=== PATIENT | female | born 1950 | race Caucasian/White ===

== ENCOUNTER 2016-09-30 08:38 | Day surgery (SDC) | payer OTHER ==
--- NOTE | 2016-09-29 09:39 | HP ---
DATE OF CLINIC: 09/24/2016 BALWINDER ARREDONDO : 1950 PLANNED PROCEDURE: Right Carpal Tunnel Release DATE OF SURGERY: September 30, 2016 SURGEON: Viktor Merritt M.D. HISTORY OF PRESENT ILLNESS Balwinder Arredondo is a 65 year old female. * Medication list reviewed with patient allergy list reviewed with patient. * Tried NSAIDS Advil PRN * Has not tried Physical Therapy * Has not tried Injections This is a 65-year-old female who presents with complaints of bilateral carpal tunnel symptoms, primarily numbness and tingling in her right greater than left hand that goes back several months. At this point although she had similar symptoms back in the she states that this pain and numbness has been increasing with time. It was temporarily relieved with a trial of night splints, but not definitively relieved. Modification of her activities has not fully relieved her pain and she has not been able thus far to find any medications not make a significant difference. She has tried anti-inflammatories without adequate relief. She complains primarily of pain and numbness and tingling at the wrist. She rates the pain is bad as a 2/10. It seems to be worse with activities, particularly typing. She has undergone an ERICA as she initially filed for this to be covered under [employer], that was denied and so she is moving forward with this as a primary insurance claim. She presents today preoperatively. PAST MEDICAL AND SURGICAL HISTORY: Past medical and surgical history are as document. The patient states that she is undergoing menopause and it appears that the onset of her menopause symptoms coincides with the increase in her wrist symptoms. CURRENT MEDICATION * Losartan Potassium-HCTZ 100-25 MG Tablet 1 once a day, 90 days, 3 refills * Losartan Potassium-HCTZ 100-25 MG Tablet 1 once a day, 30 days, 0 refills * Stelara 45 MG/0.5ML SOSY, as directed 0 days, 0 refills * SudoGest 30 MG Tablet as directed 1-2 tabs every 6 hrs as needed [facility], 30 days, 3 refills * TraMADol HCl 50 MG Tablet 1-2 tabs every 6 to 8 hours prn pain Called to [facility] Emmanuel Kan MA 09/24/16, 0 days, 0 refills * Vagifem 10 MCG TABS, as directed 1 tab vaginally twice a week, 84 days, 3 refills PAST MEDICAL/SURGICAL HISTORY Reported: No recent change in medical history. Medical: Reported numbness and Reported tingling. 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 Surgical: * Tonsillectomy * Tubal ligation SOCIAL HISTORY Social history and to Gavin since 2003 son Enrique (29) works in [employer] for [employer] has [employer] and is member of [employer], used to golf and thinking of restarting. Behavioral: Caffeine use a couple cups of coffee a day and non-smoker quit smoking quit 35 yrs ago, 1/2 for 2 years. Smoking status: Former smoker. Alcohol: Alcohol use 1-2 drinks/night and a social drinker Occasional. Home Environment: Lives with spouse. Work: Occupation RN Infectious Control. ALLERGIES * No Known Allergies FAMILY HISTORY Family history unchanged Family medical history Mother: Heart Disease Father: Heart Disease, Diabetes, HBP REVIEW OF SYSTEMS No recent constitutional symptoms to include fevers and chills. No recent cardiovascular symptoms to include chest pain or palpitations. No recent respiratory symptoms to include shortness of breath or recent infections. PHYSICAL FINDINGS * Vitals taken 09/24/2016 01:57 pm BP-Sitting R 127/77 mmHg BP Cuff Size Regular Pulse Rate-Sitting 76 bpm Pulse Rhythm Regular Temp-Oral 97 F Height 62.25 in Weight 173 lbs Body Mass Index 31.4 kg/m2 Body Surface Area 1.80 m2 Pain Level 2 Ears, Nose, Throat: * ENT: normal. Lungs: * Clear to auscultation. Cardiovascular: Heart Rate and Rhythm: * Normal. Abdomen: * Normal. Neurological: Motor: * Dominant Hand = Right Hand. Patient is a well-developed, well-nourished female in no acute distress. They are awake and alert throughout the encounter. CARDIOVASCULAR: Intact peripheral pulses on bilateral upper extremities. No significant edema on inspection of bilateral upper extremities. NEUROLOGIC: Patient had intact coordinated composite motion of the bilateral upper extremities and sensation intact to light touch in all distributions of bilateral upper extremities. PSYCHIATRIC: Patient was oriented to person, place and time and displayed appropriate mood and affect during the encounter. SKIN: Exam of the skin on bilateral upper extremities showed no significant scars, lesions, rashes or masses. FOCUSED MUSCULOSKELETAL EXAM: The patient has normal resting station of the shoulders, elbows and wrists. Her right wrist shows no scars, no erythema, no ecchymosis. No significant swelling. She has a mildly positive Tinel's at the wrist. She has a positive Phalen's, and positive flexion and compression test. She has no significant weakness in her median nerve distribution. She does have some numbness and tingling, especially at the tips of her digits in the radial 3.5 digits. The hand is warm and well perfused with very mildly ulnar dominant blood flow on an Theo test. She is stable to Ge's exam and she has 5/5 strength throughout the hand. She has a negative Tinel's at the elbow and no evidence of ulnar nerve symptoms. IMAGING: A review of her x-rays shows no significant fractures or dislocations. She has some mild degenerative changes in the radial, carpal and scaphotrapeziotrapezoidal joint as well as some mild CMC arthrosis at the base of her thumb. Nerve conduction studies document moderate to severe carpal tunnel symptoms on the right side with no significant change on the left side. ASSESSMENT A 65-year-old right-hand dominant female with symptomatic and neurodiagnostic confirmed carpal tunnel on the right side as well. His symptoms consistent with carpal tunnel on the left side but it with equivocal neurodynamic studies. PREVIOUS TESTS * Test: CBC WITH DIFF Report Date: 09/01/2016 WBC 6.6 10*3/mL MCV 84.1 fL RBC 5.02 10*6/uL NEUTROPHILS 66.2 % MCH 28.7 pg MCHC 34.1 g/dL RDW 13.2 % PLATELET COUNT 203 10*3/mL IMM NEUT % 0.8 % IMM NEUT # 0.1 10*3/mL MONOCYTES 8.2 % BASOPHIL 0.5 % EOSINOPHIL 1.2 % HCT 42.2 % HGB 14.4 g/L LYMPHOCYTE 23.1 % ANC 4.4 10*3/mL * Test: THYROID STIMULATING HORMONE Report Date: 09/01/2016 TSH 2.46 u[iU]/mL * Test: COMPREHENSIVE METABOLIC PANEL Report Date: 09/01/2016 ALT/SGPT 8 U/L ALBUMIN 4.6 g/dL ALB/GLOB RATIO 2.4 BUN 16 mg/dL BUN/CREAT RATIO 23 High CALCIUM 9.5 mg/dL GLUCOSE 91 mg/dL CREATININE 0.7 mg/dL SODIUM 139 meq/L POTASSIUM 4.4 meq/L CHLORIDE 102 meq/L CARBON DIOXIDE 30 meq/L ANION GAP 11 meq/L TOT PROTEIN 6.5 g/dL GLOBULIN 1.9 g/dL Low BILI,TOTAL 0.8 mg/dL AST/SGOT 17 U/L ALK PHOSPHATASE 64 U/L GFR 85 * Test: LIPID PROFILE Report Date: 09/01/2016 HDL CHOLESTEROL 84 mg/dL VLDL CHOL 14 mg/dL CHOLESTEROL 217 mg/dL High TRIGLYCERIDES 72 mg/dL LDL CHOLESTEROL 119 mg/dL RISK RATIO 2.6 Low THERAPY * Patient not eligible for fall risk assessment. PLAN * Carpal tunnel syndrome, right upper limb Percocet 5-325 MG TABS, 1or 2 tablets every 4 to 6 hours as needed, 5 days, 0 refills * Decompression of median nerve at carpal tunnel -right CARE TEAM Iza Mitchell MD [facility] SURGICAL CONSENT We have discussed surgical options including right CTR and non-operative management. The patient was counseled in detail regarding the diagnosis, treatment options available, prognosis of each treatment option and the potential risks and complications. The risks of surgery include, but are not limited to, anesthetic , neurovascular complications, pulmonary embolism, deep vein thrombosis, wound dehiscence, failure of any or all of the discussed procedures, infection of the joint or surrounding soft tissue, need for revision surgery, chronic pain, limitations in activities of daily living, inability to return to work, and loss of normal range of motion or functional use of the extremity. There is the possibility of failure over time that may require additional operative or non-operative treatment. The patient acknowledged that there are a number of perioperative risks not mentioned here and would still like to proceed. The patient is aware of and understands these risks, and wishes to proceed with the proposed surgical procedure and other procedures as indicated at the time of surgery. We will have the patient see their PCP for a preoperative medical risk assessment. The preoperative instructions were reviewed with the patient and all questions were answered. PB/sg
[~2016-09-30 08:38] MED LIST: DEXAMETHASONE SOD PHOS 4 MG/1 ML VIAL ONE; LIDOCAINE 1% (PRES FREE) 30 ML VIAL ONE; METOCLOPRAMIDE HCL 5 MG/ML 2ML VIAL ONE; MIDAZOLAM HCL 1 MG/ML 2ML VIAL ONE; PROPOFOL 40 ML IV ONE
[2016-09-30] MEDS ORDERED: LACTATED RINGERS 1,000 ML ONE (08:44)
[2016-09-30] MEDS ORDERED: IV START KIT ONE ×2 (08:44→09:23)
[2016-09-30] MEDS ORDERED: CEFAZOLIN SODIUM 2 GRAM PREMIX 100 ML IV ONE (08:44)
[2016-09-30] MEDS ORDERED: CEFAZOLIN SODIUM 2 GRAM DUPLEX 50 ML IV PRN (08:45)
[2016-09-30] MEDS ORDERED: SODIUM CHLORIDE 0.9% FLUSH 10 ML ONE (09:23)
[2016-09-30] MEDS ORDERED: BUPIVACAINE 0.5% W/EPI SDV 30 ML VIAL ONE (10:10)
--- NOTE | 2016-09-30 10:17 | PCMBPN ---
Brief Post Op Note: Date of Procedure: 09/30/16 Start Time: 1000 Preoperative Diagnosis: 1. right carpal tunnel syndrome Postoperative Diagnosis: 1. Same Procedure: right open carpal tunnel release Surgeon: Viktor Merritt MD Assist: Josephine Briseno Anesthesia: Robin De Guzman Findings: as above Condition: stable to SDS Complications: none IV Fluids: 700 mLs of LR Urine Output: 0 mLs Estimated Blood Loss: 1 mLs Tourniquet Time: 25 min (Liana block) Specimens: none Implants: none Drains: none Viktor Merritt MD
[2016-09-30] MEDS ORDERED: ONDANSETRON 4 MG/2ML 2 ML VIAL IV PRN (10:35)
[2016-09-30] MEDS ORDERED: LACTATED RINGERS 1,000 ML IV SCH (10:35)
[2016-09-30] MEDS ORDERED: KETOROLAC TROMETHAMINE 30 MG/ML 1 ML VIAL IV PRN (10:35)
[2016-09-30] MEDS ORDERED: DIPHENHYDRAMINE HCL 50 MG/1 ML VIAL IV PRN (10:35)
[2016-09-30] MEDS ORDERED: OXYCODONE/ACETAMINOPHEN 5/325 MG TABLET PO PRN (10:35)
[2016-09-30] MEDS ORDERED: HYDROMORPHONE HCL 1 MG/ML SYRINGE IV PRN (10:35)
--- NOTE | 2016-10-01 10:02 | OP ---
Zaynab Arredondo : 1950 [id number] DATE OF SERVICE: 09/30/2016 PREOPERATIVE DIAGNOSIS: Right carpal tunnel syndrome. POSTOPERATIVE DIAGNOSIS: Right carpal tunnel syndrome. PROCEDURE PERFORMED: Right open carpal tunnel release. SURGEON: Viktor Merritt M.D. FLOOR GRINDER: Josephine Briseno. ANESTHESIA: Robin Granda. SPECIMENS: No material was sent to the laboratory. ESTIMATED BLOOD LOSS: 1 mL. FLUID REPLACED: 700 mL of crystalloid. TOURNIQUET TIME: 25 minutes for a soo block. IMPLANTS: None. DRAINS: None. INDICATIONS: This is a 66-year-old right hand dominant female with longstanding right carpal tunnel symptoms. Her physical exam and her diagnostic studies support this diagnosis. Risks, benefits, alternatives of open carpal tunnel release were discussed with the patient and she elected to proceed with surgery. Informed consent was obtained and documented on the chart. DESCRIPTION OF PROCEDURE: The patient was identified in the preoperative holding and marked with an indelible marker by the operating surgeon. She was taken to the operating room where she was placed in a supine position on the operating room table. She received perioperative antibiotics. A final operative timeout was performed confirmed by all members of the operative team. A well padded precalibrated non-sterile tourniquet was placed on her right upper arm. Her arm was elevated and exsanguinated using an esmarch bandage and the tourniquet was inflated to 250 mmHg. [place] block anesthesia was administered and then the IV from her right hand was removed. She was prepped and draped in the usual sterile fashion for surgery. Operative incision was made 3 cm in length over the volar surface of the patient's right hand approximately 6 mm ulnar to the thenar flexion crease. Dissection was carried down into the transverse fibers of transverse carpal ligament, these were sharply divided at their proximal extent and the freer elevated was passed into the carpal tunnel to protect the median nerve. The remainder of the transverse carpal ligament was sharply divided. Dissection was carried distally until we identified the fat surrounding the vascular arches. The hand was held by the surgeon and blunt tip scissors were passed proximally, superficial, and deep to the distal volar forearm fascia and in turning there was no piercing branches in the median nerve and then a push cut technique was used to release distal portion of the volar forearm fascia. A complete release confirmed by passing a finger into the incision. We were satisfied we addressed the patient's pathology. The wound was irrigated with steirle saline and closed with horizontal mattresses of 4-0 Nylon. Sterile dressing of Xeroform, fluffs, Webril, and GLADYS bandage was applied. Tourniquet was deflated, drapes were removed, patient was transferred to the stretcher and taken postoperatively to postanesthesia care in stable condition. There were no observed intraoperative complications during this procedure. JOB: [id number]
== END 2016-09-30 11:25 | disposition home or self-care (01) ==
LOC: SDC 08:38
PROVIDERS: ATTEND Orthopaedic Surgery
PROC: 01N50ZZ Release Median Nerve, Open Approach (ICD-10-PCS; principal; 2016-09-30)
DX: G56.01 Carpal tunnel syndrome, right upper limb (principal)
CPT/HCPCS: 64721; J1100; J2765; J1885; J2250; J2001; J7120; J0690

== ENCOUNTER 2016-11-17 05:49 | Day surgery (SDC) | payer OTHER ==
--- NOTE | 2016-11-16 09:44 | HP ---
DATE OF CLINIC: 11/04/2016 BALWINDER ARREDONDO : 1950 PLANNED PROCEDURE: Left Wrist Open Carpal Tunnel Release DATE OF SURGERY: November 17, 2016 SURGEON: Viktor Merritt M.D. HISTORY OF PRESENT ILLNESS Balwinder Arredondo is a 66 year old female. * Medication list reviewed with patient allergy list reviewed with patient. * Tried NSAIDS * Has not tried Physical Therapy * Has not tried Injections The patient returns to the clinic today for a follow up postoperative right wrist carpal tunnel release procedure on September 30, 2016. The patient reports continued improvement especially over this past week with improvement in paresthesia and pain. She has returned to normal hand activity function and reports no concerns with the use of her hand. She has a history of left hand paresthesias and a previous conversation with Dr. Merritt with a recommendation for proceeding with a left carpal tunnel release after her right side was performed. The patient is reporting that her left hand index, long and ring finger are numb and tingly and that her symptoms have been going on for 20+ years. After discussion and review of treatment options for her left wrist, both operative and non-operative, she has elected to proceed with surgery and presents today preoperatively. CURRENT MEDICATION * Advil 200 MG Tablet as directed 1-2 q 4-6 hrs prn pain, 0 days, 0 refills * Losartan Potassium-HCTZ 100-25 MG Tablet 1 once a day, 90 days, 3 refills * Stelara 45 MG/0.5ML SOSY, as directed 0 days, 0 refills * SudoGest 30 MG Tablet as directed 1-2 tabs every 6 hrs as needed, [facility], 30 days, 3 refills * Vagifem 10 MCG TABS, as directed 1 tab vaginally twice a week, 84 days, 3 refills PAST MEDICAL/SURGICAL HISTORY Reported: No recent change in medical history. Medical: A history of cancer GIST tumor 1998, Reported numbness hands, Reported tingling hands, Hypertension, and Asthma childhood. Surgical / Procedural: Prior surgery Ectopic 1987 GastroIntestinal Stromal Tumor 1998, surgical breast biopsy - L breast, intestinal tumor removal - 1998 partial gastrectomy for stromal tumor, Carpal Tunnel Surgery Right - Open CTR 09/30/[address] Viktor Merritt at [facility], and Tonsilectomy . Psoriasis. 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 Behavioral: Caffeine use a couple cups of coffee a day and non-smoker quit smoking quit 35 yrs ago 1982, / for 2.5 years. Smoking status: Former smoker. Alcohol: Alcohol use 1-2 drinks/night and a social drinker Occasional. Home Environment: Lives with spouse. Work: Occupation RN Infectious Control. ALLERGIES * No Known Allergies FAMILY HISTORY Children living Yes Family history unchanged Family medical history Mother: Heart Disease Father: Heart Disease, Diabetes, HBP REVIEW OF SYSTEMS No recent constitutional symptoms to include fevers and chills. No recent cardiovascular symptoms to include chest pain or palpitations. No recent respiratory symptoms to include shortness of breath or recent infections. PHYSICAL FINDINGS * Vitals taken 11/04/2016 09:30 am BP-Sitting R 130/80 mmHg Pulse Rate-Sitting 70 bpm Temp-Oral 97.6 F Height 62.25 in Weight 176 lbs Body Mass Index 31.9 kg/m2 Body Surface Area 1.82 m2 Pain Level 1 Pain Level Note Right wrist Ears, Nose, Throat: * ENT: normal. Lungs: * Clear to auscultation. Cardiovascular: Heart Rate and Rhythm: * Normal. Abdomen: * Normal. Neurological: Motor: * Dominant Hand = Right Hand. The patient is alert and oriented and in no acute distress, ambulates in on her own. RIGHT-HAND/WRIST EXAM: The carpal tunnel release incision is healing nicely and only mildly tender. Sensation intact throughout the fingers. DPC of the fingers is 0. Thumb opposition is normal. Fingers are pink. Wrist range of motion appears normal. LEFT-HAND/WRIST EXAM: Shows a positive Phalen's/Tinel's/compression test. Wrist range of motion shows 45 degrees of flexion, 60 degrees of extension. DPC of the fingers is 0. Thumb opposition is normal. The patient has a patent radial and ulnar artery feeding the hand. IMAGING: A review of her x-rays shows no significant fractures or dislocations. She has some mild degenerative changes in the radial, carpal and scaphotrapeziotrapezoidal joint as well as some mild CMC arthrosis at the base of her thumb. Nerve conduction studies document moderate to severe carpal tunnel symptoms on the right side with no significant change on the left side. ASSESSMENT Status post right open carpal tunnel release September 30, 2016 with improvement since her last appointment. Complaints of left hand paresthesia-consistent with carpal tunnel syndrome. PREVIOUS TESTS * Test: CBC WITH DIFF Report Date: 11/03/2016 WBC 7.9 10*3/mL MCV 82.9 fL BASOPHIL 0.6 % RBC 5.25 10*6/uL NEUTROPHILS 65.4 % MCH 29.0 pg MCHC 34.9 g/dL RDW 12.6 % PLATELET COUNT 273 10*3/mL IMM NEUT % 0.4 % IMM NEUT # 0.0 10*3/mL MONOCYTES 8.3 % EOSINOPHIL 1.8 % HCT 43.5 % HGB 15.2 g/L LYMPHOCYTE 23.5 % ANC 5.2 10*3/mL * Test: COMPREHENSIVE METABOLIC PANEL Report Date: 11/03/2016 ALT/SGPT 11 U/L ALBUMIN 4.9 g/dL ALB/GLOB RATIO 2.2 BUN 15 mg/dL BUN/CREAT RATIO 19 CALCIUM 10.3 mg/dL GLUCOSE 104 mg/dL High CREATININE 0.8 mg/dL SODIUM 139 meq/L POTASSIUM 4.4 meq/L CHLORIDE 100 meq/L CARBON DIOXIDE 31 meq/L ANION GAP 12 meq/L TOT PROTEIN 7.1 g/dL GLOBULIN 2.2 g/dL Low BILI,TOTAL 1.1 mg/dL High AST/SGOT 16 U/L ALK PHOSPHATASE 66 U/L GFR 72 THERAPY * Patient not eligible for fall risk assessment. PLAN * Carpal tunnel syndrome, left upper limb Percocet 5-325 MG TABS, 1 every 4 - 6 hours as needed, 14 days, 0 refills Acetaminophen-Codeine #3 300-30 MG TABS, 1 every 4 - 6 hours as needed, 30 days, 0 refills * Decompression of median nerve at carpal tunnel -left CARE TEAM Iza Mitchell MD [facility] SURGICAL CONSENT We have discussed surgical options including left wrist open carpal tunnel release and non-operative management. The patient was counseled in detail regarding the diagnosis, treatment options available, prognosis of each treatment option and the potential risks and complications. The risks of surgery include, but are not limited to, anesthetic , neurovascular complications, pulmonary embolism, deep vein thrombosis, wound dehiscence, failure of any or all of the discussed procedures, infection of the joint or surrounding soft tissue, need for revision surgery, chronic pain, limitations in activities of daily living, inability to return to work, and loss of normal range of motion or functional use of the extremity. There is the possibility of failure over time that may require additional operative or non-operative treatment. The patient acknowledged that there are a number of perioperative risks not mentioned here and would still like to proceed. The patient is aware of and understands these risks, and wishes to proceed with the proposed surgical procedure and other procedures as indicated at the time of surgery. We will have the patient see their PCP for a preoperative medical risk assessment. The preoperative instructions were reviewed with the patient and all questions were answered. PB/sg
[~2016-11-17 05:49] MED LIST changes: +CEFAZOLIN SODIUM 2 GRAM PREMIX 100 ML IV PRN; -DEXAMETHASONE SOD PHOS 4 MG/1 ML VIAL ONE; +IV START KIT ONE; +LACTATED RINGERS 1,000 ML ONE; -LIDOCAINE 1% (PRES FREE) 30 ML VIAL ONE; -METOCLOPRAMIDE HCL 5 MG/ML 2ML VIAL ONE; -MIDAZOLAM HCL 1 MG/ML 2ML VIAL ONE; -PROPOFOL 40 ML IV ONE
[2016-11-17] MEDS ORDERED: IV START KIT ONE (06:03)
[2016-11-17] MEDS ORDERED: LIDOCAINE 2% (PRES FREE) 5 ML VIAL ONE (06:18)
[2016-11-17] MEDS ORDERED: PROPOFOL 0 ML IV ONE ×2 (06:18)
[2016-11-17] MEDS ORDERED: FENTANYL 100 MCG/2 ML VIAL ONE (06:18)
[2016-11-17] MEDS ORDERED: MIDAZOLAM HCL 1 MG/ML 2ML VIAL ONE (06:19)
[2016-11-17] MEDS ORDERED: CEFAZOLIN SODIUM 2 GRAM PREMIX 100 ML IV ONE (06:34)
[2016-11-17] MEDS ORDERED: BUPIVACAINE 0.5% W/EPI SDV 30 ML VIAL ONE (06:50)
[2016-11-17] MEDS ORDERED: LIDOCAINE 0.5% (PRES FREE) 50 ML VIAL ONE (06:58)
[2016-11-17] MEDS ORDERED: MIDAZOLAM HCL 5 MG/5 ML VIAL ONE (07:04)
--- NOTE | 2016-11-17 08:00 | PCMBPN ---
Brief Post Op Note: Date of Procedure: 11/17/16 Start Time: 729 Preoperative Diagnosis: 1. left carpal tunnel syndrome Postoperative Diagnosis: 1. Same Procedure: left open carpal tunnel release Surgeon: Viktor Merritt MD Assist: none Anesthesia: Noemi Christina (Liana block) Findings: as above Condition: stable to SDS Complications: none IV Fluids: 700 mLs of LR Urine Output: 0 mLs Estimated Blood Loss: 3 mLs Tourniquet Time: 28 min at 250 mm Hg Specimens: none Implants: none Drains: none Viktor Merritt MD
[2016-11-17] MEDS ORDERED: ONDANSETRON 4 MG/2ML 2 ML VIAL IV PRN (08:08)
[2016-11-17] MEDS ORDERED: KETOROLAC TROMETHAMINE 30 MG/ML 1 ML VIAL IV PRN (08:08)
[2016-11-17] MEDS ORDERED: ACETAMINOPHEN 325 MG TABLET PO PRN (08:08)
[2016-11-17] MEDS ORDERED: DIPHENHYDRAMINE HCL 50 MG/1 ML VIAL IV PRN (08:08)
[2016-11-17] MEDS ORDERED: HYDROMORPHONE HCL 1 MG/ML SYRINGE IV PRN (08:08)
[2016-11-17] MEDS ORDERED: LACTATED RINGERS 1,000 ML IV SCH (08:08)
[2016-11-17] MEDS ORDERED: KETOROLAC TROMETHAMINE 30 MG/ML 1 ML VIAL ONE (09:40)
--- NOTE | 2016-11-18 10:48 | OP ---
Zaynab HUNTER : 1950 [id number] DATE OF SERVICE: November 17, 2016 PREOPERATIVE DIAGNOSIS: Left carpal tunnel syndrome. POSTOPERATIVE DIAGNOSIS: Left carpal tunnel syndrome. PROCEDURE PERFORMED: LEFT CARPAL TUNNEL RELEASE. SURGEON: Viktor Merritt M.D. BUSINESS ANALYST SALES OPERATIONS: None. ANESTHESIA: Noemi Christina C.R.N.A. who provided a Liana block. SPECIMENS: No material was sent to the laboratory. ESTIMATED BLOOD LOSS: 3 mL FLUIDS REPLACED: 700 mL of crystalloid. TOURNIQUET TIME: 280minutes at 250 mmHg. IMPLANTS: None. DRAINS: None. INDICATIONS: This is a 66-year-old right hand dominant patient with history, physical exam and neurodiagnostic findings of left carpal tunnel syndrome, which has failed to be relieved by nonoperative measures. Risks, benefits and alternatives of an open carpal tunnel release were discussed with the patient and they elected to proceed with surgery. Informed consent was obtained and documented in the chart and the patient was placed on the schedule the first available convenience. DESCRIPTION OF PROCEDURE: The patient was identified in the pre-operative holding area where they were marked with an indelible marker by the operating surgeon. The patient was taken to the operating room where they were placed in the supine position on the operating room table. A Liana block anesthetic was administered by the anesthesia provider. The patient was prepped and draped in the usual sterile fashion for surgery and received perioperative antibiotics prior to the inflation of the tourniquet. A final operative time out was performed and confirmed by all members of the operative team and a longitudinal incision was made on the patient's hand just 6 mm ulnar to the thenar flexion crease. Dissection was carried down identifying transverse fibers of the transverse carpal ligament. This was sharply divided at its proximal extent and the median nerve was visualized. A Goodwin elevator was passed into the carpal tunnel to protect the nerve while the remainder of the transverse carpal ligament was sharply divided. This was carried distally until we encountered the perivascular fat of the vascular arches. The tenotomy scissors were passed both superficial and deep to the distal volar forearm fascia proximally and no transligamentous branches of the nerve were identified. Under direct visualization a push cut technique was used to divide the proximal portion of the transverse carpal ligament and the distal volar forearm fascia. At this point we felt that we had achieved an adequate release of the patient's nerves so the wound was copiously irrigated with sterile saline and closed with horizontal mattress sutures of #4-0 Nylon. A sterile dressing of Xeroform, fluffs, web roll and an GLADYS bandage was applied. The tourniquet was deflated, the drapes were removed. The patient was transferred to a stretcher and taken postoperatively to the same day surgery unit in stable condition. There were no observed intraoperative complications during this procedure. Job [id number] Cc: [facility]
== END 2016-11-17 10:45 | disposition home or self-care (01) ==
LOC: SDC 05:49
PROVIDERS: ATTEND Orthopaedic Surgery
PROC: 01N50ZZ Release Median Nerve, Open Approach (ICD-10-PCS; principal; 2016-11-17)
DX: G56.02 Carpal tunnel syndrome, left upper limb (principal); I10 Essential (primary) hypertension; J45.909 Unspecified asthma, uncomplicated; Z87.891 Personal history of nicotine dependence
CPT/HCPCS: 64721; J3010; J1885; J2250 ×2; J2001; J7120; J0690